=== PATIENT | male | born 1935 | race Caucasian/White ===

== ENCOUNTER 2017-01-25 09:42 | Inpatient (IN) | payer OTHER, BC ==
[~2017-01-25] VITALS: Ht 170.2 cm; Wt 80.3 kg
[~2017-01-25 09:42] MED LIST: ATENOLOL50 MG PO; Aspirin E.C. PO; Augmentin PO; COMPAZINE10 MG PO; Decadron PO; Hydrodiuril,Oretic,E PO; Lovenox SC; PRILOSEC40 MG PO; Xanax PO; ZYRTEC10 M2 PO; Zovirax PO; [UNRECOGNIZED DRUG - OTHER]; predniSONE PO
[2017-01-25 10:20] LABS: POINT-OF-CARE METER ID UU14100415
[2017-01-25 10:27] LABS: EOSINOPHIL (%) 0.3 % (0-5); HEMATOCRIT 42.4 % (38.0-50.0); IMMATURE GRANULOCYTE (%) 0.6 % (0.0-0.7); IMMATURE GRANULOCYTE COUNT 0.1 K/uL; INSTRUMENT ABS NEUTROPHIL CT 6.9 K/uL; LYMPHOCYTE COUNT 0.6 K/uL (1.0-2.8); MCHC 34.4 G/DL (30.0-36.0); MEAN PLAT.VOLUME 8.6 uM^3 (9.0-12.4); MONOCYTE (%) 2.1 % (3-12); MONOCYTE COUNT 0.2 K/uL (0-0.8); NEUTROPHIL (%) 88.6 % (45-76); NEUTROPHIL COUNT 6.9 K/uL (1.8-6.4); PLATELET COUNT 295 K/uL (156-360); RBC DIS.WIDTH-CV 11.9 % (11.8-14.6); RBC DIS.WIDTH-SD 38.8 % (39-53); RED BLOOD COUNT 4.71 M/uL (4.00-5.50); WHITE BLOOD COUNT 7.7 K/uL (4.1-10.2)
[2017-01-25 10:34] LABS: PROTHROMBIN TIME 10.7 SEC (10.2-12.9)
[2017-01-25 10:37] LABS: PTT 35.3 SEC (25-37)
[2017-01-25 10:58] LABS: ANION GAP 13 MEQ/L (2-14); CHLORIDE 94 MEQ/L (99-109); POTASSIUM 3.9 MEQ/L (3.7-5.4); SAMPLE HEMOLYSIS CHECK 0; SAMPLE ICTERIC CHECK 0; SAMPLE LIPEMIA CHECK 0; SODIUM 131 MEQ/L (136-147)
[2017-01-25 11:04] LABS: GFR ESTIMATE (CALCULATED) > 59 mL/min/; GLUCOSE 110 mg/dL (70-99); TROP-I INTERPRETATION NEGATIVE; TROPONIN-I < 0.01 ng/mL (0.0-0.30); UREA NITROGEN (BUN) 9 mg/dL (9-23)
[2017-01-25] MEDS ORDERED: DECADRON4 MG PO (11:44)
[2017-01-25] MEDS ORDERED: PANTOPRAZOLE SO40 MG PO (11:44)
[2017-01-25] MEDS ORDERED: REVLIMID25 MG PO (11:45)
[2017-01-25] MEDS ORDERED: PREDNISOLONE AC15 ML LEFT EYE (11:47)
[2017-01-25] MEDS ORDERED: GABAPENTIN100 MG PO (11:47)
[2017-01-25] MEDS ORDERED: NINLARO4 MG PO (11:47)
[2017-01-25] MEDS ORDERED: NORVASC5 MG PO (11:48)
[2017-01-25] MEDS ORDERED: OXYCODONE HCL5 MG PO (11:48)
[2017-01-25] MEDS ORDERED: IRON325 M1 PO (11:49)
[2017-01-25] MEDS ORDERED: PRESERVISION A1 EAC2 PO (11:49)
[2017-01-25 15:30] VITALS: BP 147/78
[2017-01-25 18:30] LABS: TROP-I INTERPRETATION NEGATIVE; TROPONIN-I < 0.01 ng/mL (0.0-0.30)
[2017-01-25 20:01] VITALS: BP 152/74
[2017-01-25 23:42] VITALS: BP 137/75
[2017-01-26 01:04] LABS: TROP-I INTERPRETATION NEGATIVE; TROPONIN-I < 0.01 ng/mL (0.0-0.30)
[2017-01-26 04:22] VITALS: BP 139/93
[2017-01-26 07:28] LABS: ANION GAP 10 MEQ/L (2-14); CHLORIDE 96 MEQ/L (99-109); GFR ESTIMATE (CALCULATED) > 59 mL/min/; GLUCOSE 104 mg/dL (70-99); POTASSIUM 4.1 MEQ/L (3.7-5.4); SAMPLE HEMOLYSIS CHECK 0; SAMPLE ICTERIC CHECK 0; SAMPLE LIPEMIA CHECK 0; SODIUM 130 MEQ/L (136-147); UREA NITROGEN (BUN) 11 mg/dL (9-23)
[2017-01-26 08:33] VITALS: BP 173/100
[2017-01-26 11:21] VITALS: BP 151/86
[2017-01-26 14:59] VITALS: BP 149/95
[2017-01-26 19:33] VITALS: BP 165/90
[2017-01-26 23:33] VITALS: BP 148/87
[2017-01-27] VITALS (9 sets, daily range): BP systolic 99–172; BP diastolic 63–95
[2017-01-27 06:24] LABS: ANION GAP 9 MEQ/L (2-14); CHLORIDE 94 MEQ/L (99-109); GFR ESTIMATE (CALCULATED) > 59 mL/min/; GLUCOSE 81 mg/dL (70-99); POTASSIUM 3.8 MEQ/L (3.7-5.4); SAMPLE HEMOLYSIS CHECK 0; SAMPLE ICTERIC CHECK 0; SAMPLE LIPEMIA CHECK 0; SODIUM 128 MEQ/L (136-147); UREA NITROGEN (BUN) 12 mg/dL (9-23)
[2017-01-27 21:04] LABS: BASE EXCESS -6.3 mEq/L (-3 to +3); BICARBONATE 21.4 mEq/L (22-26); CARBOXY HGB 2.4 % (0-5); METHEMOGLOBIN 1.7 % (0-1.5); PCO2 50 mm Hg (35-45); PO2 96 mm Hg (80-100)
[2017-01-27 21:05] LABS: COMMENTS - BLOOD GASES C+A+; DEVICE VENT; FI02 50 %; MECHANICAL RATE 10 resp/min; MODE AC; PEEP 5 CM/H20; SITE RR; TIDAL VOLUME 550 ML; TOTAL RESP RATE 12 resp/min; pH 7.24 (7.35-7.45)
[2017-01-27 21:34] LABS: HEMATOCRIT 39.7 % (38.0-50.0); MCH 30.7 PG (29.0-34.0); MCHC 33.8 G/DL (30.0-36.0); MCV 91.1 FL (86-99); MEAN PLAT.VOLUME 8.7 uM^3 (9.0-12.4); PLATELET COUNT 276 K/uL (156-360); RBC DIS.WIDTH-CV 12.1 % (11.8-14.6); RBC DIS.WIDTH-SD 40.6 % (39-53); RED BLOOD COUNT 4.36 M/uL (4.00-5.50); WHITE BLOOD COUNT 10.7 K/uL (4.1-10.2)
[2017-01-27 21:50] LABS: ANION GAP 10 MEQ/L (2-14); CHLORIDE 99 MEQ/L (99-109); POTASSIUM 3.8 MEQ/L (3.7-5.4); SAMPLE HEMOLYSIS CHECK 0; SAMPLE ICTERIC CHECK 0; SAMPLE LIPEMIA CHECK 0; SODIUM 128 MEQ/L (136-147); TOTAL BILIRUBIN 0.8 MG/DL (0.0-1.0)
[2017-01-27 21:58] LABS: ALKALINE PHOSPHATASE 92 IU/L (3-129); GFR ESTIMATE (CALCULATED) > 59 mL/min/; GLUCOSE 158 mg/dL (70-99); UREA NITROGEN (BUN) 11 mg/dL (9-23)
[2017-01-27 23:29] LABS: BASE EXCESS -3.8 mEq/L (-3 to +3); BICARBONATE 20.7 mEq/L (22-26); CARBOXY HGB 2.1 % (0-5); METHEMOGLOBIN 1.7 % (0-1.5); PCO2 35 mm Hg (35-45); PO2 67 mm Hg (80-100); pH 7.38 (7.35-7.45)
[2017-01-27 23:30] LABS: COMMENTS - BLOOD GASES C+A+; DEVICE VENT; FI02 40 %; MECHANICAL RATE 16 resp/min; MODE AC; PEEP 5 CM/H20; SITE RR; TIDAL VOLUME 550 ML; TOTAL RESP RATE 16 resp/min
[2017-01-27 23:39] LABS: METH RESISTANT S AUREUS PCR NEGATIVE (NEGATIVE)
[2017-01-28] VITALS (20 sets, daily range): BP systolic 113–176; BP diastolic 63–82
[2017-01-28 00:12] LABS: PROBE CHECK PASS; SPECIMEN PROCESSING CONTROL PASS
[2017-01-28 05:38] LABS: HEMATOCRIT 36.8 % (38.0-50.0); MCH 31.6 PG (29.0-34.0); MCHC 35.3 G/DL (30.0-36.0); MCV 89.3 FL (86-99); PLATELET COUNT 268 K/uL (156-360); RBC DIS.WIDTH-CV 12.2 % (11.8-14.6); RBC DIS.WIDTH-SD 39.8 % (39-53); RED BLOOD COUNT 4.12 M/uL (4.00-5.50); WHITE BLOOD COUNT 10.7 K/uL (4.1-10.2)
[2017-01-28 06:15] LABS: ANION GAP 9 MEQ/L (2-14); CHLORIDE 99 MEQ/L (99-109); GFR ESTIMATE (CALCULATED) > 59 mL/min/; GLUCOSE 138 mg/dL (70-99); POTASSIUM 4.2 MEQ/L (3.7-5.4); SAMPLE HEMOLYSIS CHECK 0; SAMPLE ICTERIC CHECK 0; SAMPLE LIPEMIA CHECK 0; SODIUM 129 MEQ/L (136-147); UREA NITROGEN (BUN) 13 mg/dL (9-23)
[2017-01-29 04:05] VITALS: BP 160/65
[2017-01-29] MEDS ORDERED: ADULT FOLDING1 EACH MC (07:29)
[2017-01-29 08:11] VITALS: BP 161/90
[2017-01-29 11:08] VITALS: BP 164/88
[2017-01-29] MEDS ORDERED: COL-RITE100 M1 PO (16:37)
[2017-01-29] MEDS ORDERED: PAIN & FEVER325 MG PO (16:38)
[2017-01-29] MEDS ORDERED: PERCOCET 5/31 TABLET PO (16:40)
[2017-01-29] MEDS ORDERED: LOVENOX40 MG/0.4 SC (16:41)
== END 2017-01-29 15:10 | DRG 820 ==
LOC: EME 09:42 → 2SOUTH 11:42 → EDOF 11:42 → 5SOUTH 11:42 → 4WEST 11:42 → EDOF 11:46 → 5SOUTH 15:31 → ENRESERV 01-27 13:56 → 4WEST 01-27 19:32 → 2SOUTH 01-27 20:22 → ENRESERV 01-27 20:23 → 2SOUTH 01-27 21:10 → 4WEST 01-27 22:01 → ENRESERV 01-28 18:47 → 3EAST 01-28 21:36
PROVIDERS: Emergency Medicine; Internal Medicine; Neurological Surgery; Nurse Practitioner Adult Health; Surgery
PROC: 0BH17EZ Insertion of Endotracheal Airway into Trachea, Via Natural or Artificial Opening (ICD-10-PCS; principal; 2017-01-27)
PROC: 5A1935Z Respiratory Ventilation, Less than 24 Consecutive Hours (ICD-10-PCS; principal; 2017-01-27)
PROC: 0RG20K1 Fusion of 2 or more Cervical Vertebral Joints with Nonautologous Tissue Substitute, Posterior Approach, Posterior Column, Open Approach (ICD-10-PCS; principal; 2017-01-27)
PROC: 0RG20AJ Fusion of 2 or more Cervical Vertebral Joints with Interbody Fusion Device, Posterior Approach, Anterior Column, Open Approach (ICD-10-PCS; principal; 2017-01-27)
PROC: 00NW0ZZ Release Cervical Spinal Cord, Open Approach (ICD-10-PCS; principal; 2017-01-27)
DX: C90.00 Multiple myeloma not having achieved remission (principal); J96.00 Acute respiratory failure, unspecified whether with hypoxia or hypercapnia; G82.50 Quadriplegia, unspecified; M48.02 Spinal stenosis, cervical region; G95.29 Other cord compression; M84.48XA Pathological fracture, other site, initial encounter for fracture; E87.1 Hypo-osmolality and hyponatremia; G62.0 Drug-induced polyneuropathy; I10 Essential (primary) hypertension; R53.1 Weakness; T45.1X5D Adverse effect of antineoplastic and immunosuppressive drugs, subsequent encounter; Z87.891 Personal history of nicotine dependence; R41.82 Altered mental status, unspecified; Z86.73 Personal history of transient ischemic attack (TIA), and cerebral infarction without residual deficits; Z79.899 Other long term (current) drug therapy; R29.6 Repeated falls; M19.90 Unspecified osteoarthritis, unspecified site; M21.921 Unspecified acquired deformity of right upper arm; S42.301S Unspecified fracture of shaft of humerus, right arm, sequela; X58.XXXS Exposure to other specified factors, sequela; Q70.12 Webbed fingers, left hand; R29.2 Abnormal reflex; I35.0 Nonrheumatic aortic (valve) stenosis; K21.9 Gastro-esophageal reflux disease without esophagitis; K27.9 Peptic ulcer, site unspecified, unspecified as acute or chronic, without hemorrhage or perforation; R00.1 Bradycardia, unspecified; G96.8 Other specified disorders of central nervous system; S01.01XA Laceration without foreign body of scalp, initial encounter; X58.XXXA Exposure to other specified factors, initial encounter; R47.81 Slurred speech; H54.7 Unspecified visual loss
CPT/HCPCS: 36415; 36600; 70450; 70551; 71010; 72020; 76000; 80048; 80053; 82565; 82803; 82948; 83930; 84484; 84520; 85025; 85027; 85610; 85730; 87070; 87075; 87205; 87641; 88305; 93005; 93306; 93880; 94002; 94003; 95938; C1713; J0330; J0360; J0690; J1100; J1170; J1580; J1650; J2405; J2704; J2710; J2930; J3010; J3370; J3480; J7030; S0020

== ENCOUNTER 2017-01-29 10:39 | Inpatient (IN) | payer OTHER, BC ==
[~2017-01-29] VITALS: Ht 170.2 cm; Wt 80.3 kg
[~2017-01-29 10:39] MED LIST changes: +ADULT FOLDING1 EACH MC; +DECADRON4 MG PO; +GABAPENTIN100 MG PO; +IRON325 M1 PO; +NINLARO4 MG PO; +NORVASC5 MG PO; +OXYCODONE HCL5 MG PO; +PANTOPRAZOLE SO40 MG PO; +PREDNISOLONE AC15 ML LEFT EYE; +PRESERVISION A1 EAC2 PO; +REVLIMID25 MG PO
[2017-01-29 15:23] VITALS: BP 186/88
[2017-01-29] MEDS ORDERED: COL-RITE100 M1 PO (16:37)
[2017-01-29] MEDS ORDERED: PAIN & FEVER325 MG PO (16:38)
[2017-01-29] MEDS ORDERED: PERCOCET 5/31 TABLET PO (16:40)
[2017-01-29] MEDS ORDERED: LOVENOX40 MG/0.4 SC (16:41)
[2017-01-29 18:02] VITALS: BP 166/80
[2017-01-30 04:46] VITALS: BP 143/68
[2017-01-30 04:48] LABS: HEMATOCRIT 36.3 % (38.0-50.0); MCH 30.4 PG (29.0-34.0); MCHC 34.7 G/DL (30.0-36.0); MCV 87.7 FL (86-99); MEAN PLAT.VOLUME 9.3 uM^3 (9.0-12.4); PLATELET COUNT 262 K/uL (156-360); RBC DIS.WIDTH-CV 11.7 % (11.8-14.6); RBC DIS.WIDTH-SD 37.8 % (39-53); RED BLOOD COUNT 4.14 M/uL (4.00-5.50); WHITE BLOOD COUNT 10.5 K/uL (4.1-10.2)
[2017-01-30 05:11] LABS: CHLORIDE 93 mEq/L (99-109); POTASSIUM 3.4 mEq/L (3.7-5.4); SODIUM 129 mEq/L (136-147)
[2017-01-30 05:13] LABS: GLUCOSE 105 mg/dL (70-99)
[2017-01-30 05:15] LABS: ANION GAP 11 MEQ/L (2-14); TOTAL BILIRUBIN 1.8 mg/dL (0.0-1.0)
[2017-01-30 05:17] LABS: ALKALINE PHOSPHATASE 114 IU/L (3-129); GFR ESTIMATE (CALCULATED) > 59 mL/min/
[2017-01-30 05:18] LABS: UREA NITROGEN (BUN) 11 mg/dL (9-23)
[2017-01-30 07:22] VITALS: BP 182/87
[2017-01-30 12:38] VITALS: BP 165/80
[2017-01-30 15:47] VITALS: BP 158/85
[2017-01-31 05:05] LABS: ADD MIUA? NO; BILIRUBIN NEGATIVE; BLOOD NEGATIVE; COLOR YELLOW ((YELLOW)); GLUCOSE (STRIP) NEGATIVE; KETONES 5; LEUKOCYTES NEGATIVE; NITRITE NEGATIVE; PROTEIN (STRIP) NEGATIVE; SPECIFIC GRAVITY 1.011 (1.000-1.030); UROBILINOGEN 0.2 MG/DL (0.2-1.0)
[2017-01-31 05:17] VITALS: BP 155/75
[2017-01-31 06:08] LABS: EOSINOPHIL (%) 1.4 % (0-5); EOSINOPHIL COUNT 0.1 K/uL (0-0.3); HEMATOCRIT 33.8 % (38.0-50.0); IMMATURE GRANULOCYTE (%) 1.1 % (0.0-0.7); IMMATURE GRANULOCYTE COUNT 0.1 K/uL; INSTRUMENT ABS NEUTROPHIL CT 7.8 K/uL; LYMPHOCYTE COUNT 1.2 K/uL (1.0-2.8); MCH 31.4 PG (29.0-34.0); MCHC 35.5 G/DL (30.0-36.0); MCV 88.5 FL (86-99); MEAN PLAT.VOLUME 9.1 uM^3 (9.0-12.4); MONOCYTE (%) 9.8 % (3-12); NEUTROPHIL COUNT 7.8 K/uL (1.8-6.4); PLATELET COUNT 276 K/uL (156-360); RBC DIS.WIDTH-CV 11.9 % (11.8-14.6); RBC DIS.WIDTH-SD 38.2 % (39-53); RED BLOOD COUNT 3.82 M/uL (4.00-5.50); WHITE BLOOD COUNT 10.3 K/uL (4.1-10.2)
[2017-01-31 08:37] LABS: ANION GAP 8 MEQ/L (2-14); CHLORIDE 93 MEQ/L (99-109); GFR ESTIMATE (CALCULATED) > 59 mL/min/; GLUCOSE 111 mg/dL (70-99); MAGNESIUM 1.6 mg/dl (1.3-2.7); POTASSIUM 3.5 MEQ/L (3.7-5.4); SAMPLE HEMOLYSIS CHECK 0; SAMPLE ICTERIC CHECK 0; SAMPLE LIPEMIA CHECK 0; SODIUM 128 MEQ/L (136-147); UREA NITROGEN (BUN) 11 mg/dL (9-23); URIC ACID 3.2 mg/dL (3.1-9.2)
[2017-01-31 09:06] VITALS: BP 151/82
[2017-01-31 15:28] VITALS: BP 145/78
[2017-02-01 06:20] VITALS: BP 139/76
[2017-02-01 07:13] LABS: ANION GAP 5 MEQ/L (2-14); CHLORIDE 94 MEQ/L (99-109); GFR ESTIMATE (CALCULATED) > 59 mL/min/; GLUCOSE 103 mg/dL (70-99); POTASSIUM 4.1 MEQ/L (3.7-5.4); SAMPLE HEMOLYSIS CHECK 0; SAMPLE ICTERIC CHECK 0; SAMPLE LIPEMIA CHECK 0; SODIUM 129 MEQ/L (136-147); UREA NITROGEN (BUN) 11 mg/dL (9-23)
[2017-02-01 15:00] VITALS: BP 131/65
[2017-02-02 04:58] VITALS: BP 148/71
[2017-02-02 07:07] LABS: ANION GAP 10 MEQ/L (2-14); CHLORIDE 95 MEQ/L (99-109); GFR ESTIMATE (CALCULATED) > 59 mL/min/; GLUCOSE 101 mg/dL (70-99); SAMPLE HEMOLYSIS CHECK 0; SAMPLE ICTERIC CHECK 0; SAMPLE LIPEMIA CHECK 0; SODIUM 131 MEQ/L (136-147); UREA NITROGEN (BUN) 8 mg/dL (9-23)
[2017-02-02 15:00] VITALS: BP 126/70
[2017-02-03 05:20] VITALS: BP 142/70
[2017-02-03 07:51] LABS: ANION GAP 11 MEQ/L (2-14); CHLORIDE 92 MEQ/L (99-109); GFR ESTIMATE (CALCULATED) > 59 mL/min/; GLUCOSE 115 mg/dL (70-99); SAMPLE HEMOLYSIS CHECK 0; SAMPLE ICTERIC CHECK 0; SAMPLE LIPEMIA CHECK 0; SODIUM 129 MEQ/L (136-147); UREA NITROGEN (BUN) 9 mg/dL (9-23)
[2017-02-03 08:21] VITALS: BP 155/73
[2017-02-03 15:02] VITALS: BP 132/71
[2017-02-04 04:51] VITALS: BP 148/72
[2017-02-04 15:51] VITALS: BP 132/72
[2017-02-05 04:57] LABS: HEMATOCRIT 33.8 % (38.0-50.0); MCH 31.3 PG (29.0-34.0); MCHC 34.3 G/DL (30.0-36.0); MCV 91.1 FL (86-99); MEAN PLAT.VOLUME 8.2 uM^3 (9.0-12.4); PLATELET COUNT 400 K/uL (156-360); RBC DIS.WIDTH-SD 40.1 % (39-53); RED BLOOD COUNT 3.71 M/uL (4.00-5.50); WHITE BLOOD COUNT 8.3 K/uL (4.1-10.2)
[2017-02-05 05:08] LABS: CHLORIDE 95 mEq/L (99-109); POTASSIUM 4.6 mEq/L (3.7-5.4); SODIUM 133 mEq/L (136-147)
[2017-02-05 05:10] LABS: GLUCOSE 96 mg/dL (70-99)
[2017-02-05 05:12] LABS: ANION GAP 11 MEQ/L (2-14); CHLORIDE 95 mEq/L (99-109); POTASSIUM 4.2 mEq/L (3.7-5.4); SODIUM 132 mEq/L (136-147)
[2017-02-05 05:14] LABS: GFR ESTIMATE (CALCULATED) > 59 mL/min/
[2017-02-05 05:15] LABS: GLUCOSE 98 mg/dL (70-99); UREA NITROGEN (BUN) 9 mg/dL (9-23)
[2017-02-05 05:16] VITALS: BP 124/64
[2017-02-05 05:16] LABS: ANION GAP 11 MEQ/L (2-14)
[2017-02-05 05:18] LABS: GFR ESTIMATE (CALCULATED) > 59 mL/min/
[2017-02-05 05:19] LABS: UREA NITROGEN (BUN) 10 mg/dL (9-23)
[2017-02-05 05:20] LABS: ALKALINE PHOSPHATASE 199 IU/L (3-129); TOTAL BILIRUBIN 0.8 mg/dL (0.0-1.0)
[2017-02-05] MEDS ORDERED: SENNA PLUS TAB1 EACH PO (12:57)
[2017-02-05] MEDS ORDERED: NIFEDIPINE ER30 MG PO (12:57)
[2017-02-05] MEDS ORDERED: PERCOCET 5/31 TABLET PO (12:57)
[2017-02-05] MEDS ORDERED: SODIUM CHLORIDE1 G1 PO (12:57)
[2017-02-05 15:20] VITALS: BP 145/69
[2017-02-06 04:58] VITALS: BP 172/87
[2017-02-06 12:53] VITALS: BP 130/73
[2017-02-06] MEDS ORDERED: NORVASC5 MG PO (14:29)
== END 2017-02-06 14:45 | disposition home health service (06) | DRG 841 ==
LOC: 3WEST 10:39 → ENPENDDIS 02-06 → 3WEST 02-06 14:45
PROVIDERS: Internal Medicine Nephrology; Physical Medicine & Rehabilitation Pain Medicine
PROC: F07M0ZZ Range of Motion and Joint Mobility Treatment of Musculoskeletal System - Whole Body (ICD-10-PCS; principal; 2017-01-29)
DX: C90.00 Multiple myeloma not having achieved remission (principal); G99.2 Myelopathy in diseases classified elsewhere; R26.2 Difficulty in walking, not elsewhere classified; E87.1 Hypo-osmolality and hyponatremia; E87.6 Hypokalemia; I10 Essential (primary) hypertension; Z87.891 Personal history of nicotine dependence; Z98.1 Arthrodesis status; Z86.73 Personal history of transient ischemic attack (TIA), and cerebral infarction without residual deficits
CPT/HCPCS: 76705; 80048; 80053; 81003; 82533 91; 83735; 83930; 83935; 84100; 84300; 84443; 84550; 85025; 85027; 86803; 97110 GO; 97530 GP; J1650